=== PATIENT | female | born 1965 | race Asian ===

== ENCOUNTER → 2016-05-02 | Outpatient (CLI) | payer OTHER ==
[~2016-05-02] MED LIST: ADVIL200 MG PO; APRESOLINE 25MG25 MG PO; CARDURA4 MG PO; CATAPRES 0.1MG0.1 MG PO; CLEOCIN 751500 MG/10 PO; HCTZ 25MG TAB25 MG PO; IMITREX50 MG PO; IRON325 M1 PO; MULTI VITAMINS1 TAB PO; NASACORT AQ N16.5 GM NS; NIFEDIPINE ER90 MG PO; NORCO 325 MG-51 TAB PO; SYNTHROID0.137 MG PO
== END ==
LOC: COL.RAD 12:04
DX: S82.145A Nondisplaced bicondylar fracture of left tibia, initial encounter for closed fracture (principal); S83.232A Complex tear of medial meniscus, current injury, left knee, initial encounter; S83.512A Sprain of anterior cruciate ligament of left knee, initial encounter; X58.XXXA Exposure to other specified factors, initial encounter

== ENCOUNTER → 2017-02-15 | Outpatient (CLI) | payer BC, OTHER | LOC: MC.RAD 14:00 | DX: Z12.31 Encounter for screening mammogram for malignant neoplasm of breast (principal) ==

== ENCOUNTER → 2018-04-23 | Outpatient (CLI) | payer BC | LOC: MC.RAD 12:42 | DX: Z12.31 Encounter for screening mammogram for malignant neoplasm of breast (principal) ==

== ENCOUNTER 2020-06-13 13:38 | Inpatient (IN) | payer BC ==
[~2020-06-13] VITALS: Ht 157.5 cm; Wt 72.4 kg
[2020-06-13 14:15] LABS: ARTERIAL BLD GAS O2 SATURATION 92.3 % (92-100); ARTERIAL BLD GAS TCO2 CT 25.5; ARTERIAL BLOOD GAS BASE EXCESS 2.1 (-2-2); ARTERIAL BLOOD GAS HCO3 24.6 meq/L (22-26); ARTERIAL BLOOD GAS PCO2 31.7 mmHg (35-45); ARTERIAL BLOOD GAS PO2 57.1 mmHg (80-100); ARTERIAL BLOOD GAS pH 7.51 (7.35-7.45)
[2020-06-13 14:26] LABS: BASO % 0.2 % (0.0-2.0); GRAN # 5.1 (1.4-6.5); GRAN % 81.1 % (42.2-75.2); HEMATOCRIT 37.6 % (37.0-47.0); HEMOGLOBIN 12.6 g/dl (12.5-16.0); LYMPH # 0.8 (1.2-3.4); LYMPH % 13.4 % (20.0-51.0); MEAN CELL VOLUME 81 fl (80.0-100.0); MEAN CORPUSCULAR HEMOGLOBIN 27 pg (27.0-31.0); MEAN CORPUSCULAR HGB CONC 34 g/dl (33.0-37.0); MEAN PLATELET VOLUME 9.3 fl (7.4-10.4); MONO # 0.3 (0.1-0.6); PLATELET COUNT 248 K/mm3 (130-400); RED BLOOD COUNT 4.62 M/mm3 (4.10-5.30); REDCELL DISTRIBUTION WIDTH-CV 13.8 % (11.5-14.5)
[2020-06-13 14:31] LABS: INR 1.1 (0.8-3.0); PROTHROMBIN TIME 11.9 SECONDS (9.7-12.8)
[2020-06-13 14:41] LABS: ALANINE AMINOTRANSFERASE 72 U/L (4-34); ALKALINE PHOSPHATASE 149 U/L (50-136); ANION GAP 12 mmol/L (7-16); AST,SGOT 64 U/L (15-37); BILIRUBIN,TOTAL 0.6 mg/dL (0.0-1.0); BLOOD UREA NITROGEN 17 mg/dL (7-17); C-REACTIVE PROTEIN 7.5 mg/dL (0.0-0.9); CALCIUM 8.6 mg/dL (8.4-10.2); CARBON DIOXIDE 25 mmol/L (22-30); CHLORIDE 98 mmol/L (98-107); CREATININE, serum 0.68 (0.52-1.25); GLUCOSE 134 mg/dL (74-106); LIPASE 123 U/L (23-300); SODIUM 136 mmol/L (137-145); TOTAL PROTEIN 7.4 gm/dL (6.4-8.2)
[2020-06-13 14:43] LABS: POTASSIUM 2.6 mmol/L (3.4-5.0)
[2020-06-13 14:54] LABS: PROLACTIN 6.9 ng/mL (3.0-18.6); TROPONIN-I < 0.012 ng/mL (0.000-0.035)
[2020-06-13 15:26] LABS: PARTIAL THROMBOPLASTIN TIME 32.9 SECONDS (26.0-37.0)
[2020-06-13] MEDS ORDERED: PROCARDIA XL90 MG PO (17:22)
[2020-06-13] MEDS ORDERED: HCTZ 25MG TAB25 MG PO (17:23)
[2020-06-13] MEDS ORDERED: SYNTHROID0.175 MG PO (17:24)
[2020-06-13] MEDS ORDERED: ESTRACE 1MG1 MG/TAB PO (17:24)
[2020-06-13] MEDS ORDERED: PROVERA 2.5MG2.5 MG PO (17:25)
[2020-06-13] MEDS ORDERED: LIPITOR 10MG10 MG PO (17:25)
[2020-06-13] MEDS ORDERED: CATAPRES 0.1MG0.1 MG PO (17:26)
[2020-06-13] MEDS ORDERED: CARDURA4 MG PO (17:27)
[2020-06-13] MEDS ORDERED: NATURAL IRON65 MG PO (17:28)
[2020-06-13] MEDS ORDERED: TESSALON P100 MG/CAP PO (17:30)
--- NOTE | 2020-06-13 17:37 | NUR ---
Patient to room from ER via cart. Ambulates from hallway to bed in room. Gait steady. Alert and oriented x4. Some pain in chest with breathing. On 2L/NC. Lungs diminished. Has occasional nonproductive cough. Oriented to room.
[2020-06-13 17:43] VITALS: BP 125/81; PULSE 94; TEMP 99
--- NOTE | 2020-06-13 18:07 | NUR ---
Patient asks this nurse to call her , Rob, to provide update and to give him the four digit patient code to get information. Message left for patient spouse to contact this nurse.
--- NOTE | 2020-06-13 18:48 | NUR ---
Patient spouse returns call. Provided update and four digit security code.
[2020-06-13 19:52] VITALS: BP 118/73; PULSE 93; TEMP 90
--- NOTE | 2020-06-13 20:00 | NUR ---
PATIENT WAS RECEIVED FAIR IN BED ON O2 THERAPY VIA NC AT 6L.DENIES PAIN,IVFS ON GOOD PROGRESS.NO OTHER NEEDS AT THIS TIME.
[2020-06-13 23:08] VITALS: BP 126/80; PULSE 92; TEMP 98.7
[2020-06-14 03:03] VITALS: BP 124/75; PULSE 108; TEMP 99.9
--- NOTE | 2020-06-14 03:38 | NUR ---
RT INFORMED ME THAT PATIENT IS HAVING SHALLOW BREATHS AND DESATTING BELOW 90.HOSPITALIST INFORMED MEDS GIVEN PER ORDERS.RIGHT NOW THE PATIENT IS SATTING AT LOW 80S RT INFORMED
[2020-06-14 04:13] LABS: ARTERIAL BLD GAS O2 SATURATION 88.4 % (92-100); ARTERIAL BLD GAS TCO2 CT 26.7; ARTERIAL BLOOD GAS BASE EXCESS 3.7 (-2-2); ARTERIAL BLOOD GAS HCO3 25.8 meq/L (22-26); ARTERIAL BLOOD GAS PCO2 31.2 mmHg (35-45); ARTERIAL BLOOD GAS PO2 49.6 mmHg (80-100); ARTERIAL BLOOD GAS pH 7.54 (7.35-7.45)
--- NOTE | 2020-06-14 07:07 | NUR ---
PATIENT HAS SOB ON BIPAP NOW,REPORTS OF COUGH DUE MEDS GIVEN.REPORTED OF THE BIPAP NOT BEING WELL FIXED RT INFORMED.NO OTHER NEEDS AT THIS TIME.
--- NOTE | 2020-06-14 08:53 | NUR ---
Assessment complete. Patient sitting up in bed on entry, requesting morning meds and to be off bipap for a minute. Dr. Henao present at time to inform pt that she will need to move to the ICU for closer observation and possible intubation. Patient understands POC at this time. NO complaints of pain or discomfort were expressed other than discomfort related to bipap mask. Patient was put on airvo to take medications and was satting 83-85%, bipap was placed back on right after medications were done. IVF continue to run at this time. No other needs were expressed. Will continue to monitor and proceed with tranfer orders. Call light is in reach.
[2020-06-14 08:55] VITALS: BP 123/83; PULSE 90; TEMP 99
[2020-06-14 11:43] VITALS: BP 132/88; PULSE 89; TEMP 99.7
--- NOTE | 2020-06-14 14:17 | NUR ---
Dietary Clerk attempted to contact patient's twice and left a message. Later in the afternoon, SW was advised by Site Medical Director that patient will transfer to [facility] in [place].
--- NOTE | 2020-06-14 15:05 | NUR ---
Patient left the floor at this time. Left via EMS transport.Bipap remained on using tranport vent EMS sent up. All belongings were sent with the patient. Patient was stable with no chest pain or shortness of breath at time of departure. No other questions or concerns.
== END 2020-06-14 16:20 | disposition short-term general hospital (02) | DRG 177 ==
LOC: COL.ER 13:38 → PEDS 15:16
PROVIDERS: Emergency Medicine; Student in an Organized Health Care Education/Training Program; ADMIT Internal Medicine
PROC: 02HV33Z Insertion of Infusion Device into Superior Vena Cava, Percutaneous Approach (ICD-10-PCS; principal; 2020-06-14)
PROC: XW033E5 Introduction of Remdesivir Anti-infective into Peripheral Vein, Percutaneous Approach, New Technology Group 5 (ICD-10-PCS; 2020-06-14)
DX: U07.1 COVID-19 (principal); J12.82 Pneumonia due to coronavirus disease 2019; J96.01 Acute respiratory failure with hypoxia; I10 Essential (primary) hypertension; E78.5 Hyperlipidemia, unspecified; E03.9 Hypothyroidism, unspecified; E87.6 Hypokalemia; Z88.2 Allergy status to sulfonamides; Z87.891 Personal history of nicotine dependence
CPT/HCPCS: 99223-AI; C1751; J0456; J0696; J1100; J1650; J2270; J7030; J7050; J8540

== ENCOUNTER → 2021-08-04 | Outpatient (CLI) | payer BC ==
[~2021-08-04] MED LIST changes: +ESTRACE 1MG1 MG/TAB PO; +LIPITOR 10MG10 MG PO; +NATURAL IRON65 MG PO; +PROCARDIA XL90 MG PO; +PROVERA 2.5MG2.5 MG PO; +SYNTHROID0.175 MG PO; +TESSALON P100 MG/CAP PO
== END ==
LOC: COL.RAD 08:19
DX: R79.89 Other specified abnormal findings of blood chemistry (principal)

== ENCOUNTER → 2021-08-21 | Outpatient (CLI) | payer BC ==
[~2021-08-21] MED LIST changes: +EPA FISH OIL1 SGL PO; +FERROUS SU325 MG/TAB PO; +FLONASEALLERGY NS; +L-THEANINE200 MG PO; +MAG-OX 400400 MG/TAB PO; +MASON NATURAL2000 IU PO; +NATURE'S BLE1000 MCG PO; +PRENATAL 191 CTB PO; +TRIAMCINOLONE A15 GM TP; +VALERIAN ROOT PO; +ZYRTEC 10MG10 MG PO; +[UNRECOGNIZED DRUG - CODE] TP
== END ==
LOC: COL.RAD 07:00
DX: R16.0 Hepatomegaly, not elsewhere classified (principal); N28.1 Cyst of kidney, acquired; R94.5 Abnormal results of liver function studies
CPT/HCPCS: Q9967

== ENCOUNTER → 2021-08-29 | Outpatient (CLI) | payer BC ==
[~2021-08-29] VITALS: Ht 157.5 cm; Wt 68.9 kg
[2021-08-29] VITALS (11 sets, daily range): BP systolic 130–148; BP diastolic 87–99; PULSE 70–80; TEMP 97.8
[2021-08-29 12:22] LABS: PROTHROMBIN TIME 11.4 SECONDS (9.7-12.8)
--- NOTE | 2021-08-29 13:00 | NUR ---
pt prepped by CT staff for procedure, here talks with pt
--- NOTE | 2021-08-29 13:10 | NUR ---
pt was nervous before procedure and states slightly claustophobic, versed 0.5mg IV given then Fentanyl 0.25mcg given for discomfort, procedure started
--- NOTE | 2021-08-29 13:15 | NUR ---
pt having no c/o, Dr talking with pt during procedure
--- NOTE | 2021-08-29 13:20 | NUR ---
liver tissuse speciman obtained and put in formulin. bandaid over site
--- NOTE | 2021-08-29 13:30 | NUR ---
procedure over, pt scanned, pt talks with
== END ==
LOC: COL.RAD 08-25 06:30
PROVIDERS: Internal Medicine
DX: K75.9 Inflammatory liver disease, unspecified (principal); K76.9 Liver disease, unspecified; R93.5 Abnormal findings on diagnostic imaging of other abdominal regions, including retroperitoneum
CPT/HCPCS: J2250; J3010